=== PATIENT | male | born 1975 | race Caucasian/White ===

== ENCOUNTER → 2017-11-27 | Outpatient (CLI) | payer OTHER ==
[~2017-11-27] MED LIST: BYSTOLIC 5 MG5 M1 PO; KEFLEX500 M1 PO; LOPRESSOR25; NAPROSYN500 MG PO; NORCO 5-325 TA1 EACH PO; ROBAXIN 750 MG750 M1 PO; SUBOXONE 8 MG-1 EAC3 PO
--- NOTE | 2017-12-04 14:44 | TST ---
[place] [address] TREADMILL STRESS TEST Name: VICENTE HEWITT Room: [facility]#: [id number] Admission: 11/27/17 Attend Phys: Vicente Hu, Discharge: Date of : 71 Date of Service: 11/27/17 1626 Report #: [id number] THIS REPORT FOR: //name// CC: Neftali Hu MD DATE OF SERVICE: 11/27/2017 INDICATIONS: Exercise stress test was requested in this patient with history of palpitations. PROCEDURE IN DETAIL: The patient was exercised on a Kimani protocol without imaging on a standard treadmill. RESULTS: The patient had a pretest heart rate of 76 and blood pressure 144/100. The patient was able to exercise for 11 minutes and 54 seconds achieving a peak heart rate of 158, which is greater than 90% of maximum predicted heart rate for the patient's age. Peak blood pressure 198/74. In recovery, the patient had a heart rate of 84 and blood pressure 178/94. The patient denied chest pain with exercise terminated because of fatigue. The patient's resting ECG showed a normal sinus rhythm with no ST or T-wave change noted at baseline. With exercise, there was no arrhythmia noted other than a rare PVC. At peak exercise, the patient was noted to have J-point depression, but there was no significant ST-segment depression noted at 80 milliseconds after the J-point. IMPRESSION: 1. Excellent exercise tolerance. 2. No chest pain with exercise. 3. No ischemic ST-segment changes noted with exercise. 4. Negative exercise stress test for myocardial ischemia. 5. This study is felt to represent a low risk for future cardiac events. <ELECTRONICALLY SIGNED> By: Mukesh Pfeiffer MD, FACC 12/04/17 1444 [id number] [id number] Mukesh Pfeiffer MD, FACC /nt
== END ==
LOC: M.CRD 11-13 11:00
DX: R00.2 Palpitations (principal); R07.2 Precordial pain

== ENCOUNTER 2020-02-04 18:03 | Emergency (ER) | payer OTHER ==
[~2020-02-04] VITALS: Ht 182.9 cm; Wt 81.7 kg
[2020-02-04] MEDS ORDERED: TOPROL XL50 MG PO (18:17)
[2020-02-04] MEDS ORDERED: XANAX1 MG PO (18:17)
[2020-02-04] MEDS ORDERED: KEFLEX500 M1 PO (19:23)
[2020-02-04 19:33] VITALS: BP 177/99
== END 2020-02-04 19:34 | disposition home or self-care (01) ==
LOC: M.ERS 18:03
DX: S61.411A Laceration without foreign body of right hand, initial encounter (principal); F12.90 Cannabis use, unspecified, uncomplicated; I10 Essential (primary) hypertension; Z79.899 Other long term (current) drug therapy; W31.2XXA Contact with powered woodworking and forming machines, initial encounter; Y93.89 Activity, other specified; Y92.89 Other specified places as the place of occurrence of the external cause; Y99.9 Unspecified external cause status